=== PATIENT | female | born 1940 | race Caucasian/White ===

== ENCOUNTER 2020-05-30 11:30 | Inpatient (IN) | payer OTHER, MEDICAID ==
[~2020-05-30] VITALS: Ht 157.5 cm; Wt 123.8 kg
[~2020-05-30 11:30] MED LIST: ASPI81CH43; CLON0.1T; FURO1TAB31; LOSA100T22; LOVA40TA72; METF-370; POTA8TAB2; SITA100T7
[2020-05-30 12:09] LABS: Basophils # (auto) 0.1 10 ^3/uL (0-0.2); Basophils % (auto) 0.8 % (0.0-2.0); Eosinophils # (auto) 0.1 10 ^3/uL (0-0.8); Hematocrit 41.6 % (36.0-46.0); Hemoglobin 13.5 g/dL (12.2-16.2); Lymphocytes % (auto) 24.5 % (10.0-50.0); Mean Corpuscular Hemoglobin 29.7 pg (28.0-32.0); Mean Corpuscular Hgb Conc. 32.4 g/dL (32.0-36.0); Mean Corpuscular Volume 91.8 fL (80.0-100.0); Monocytes # (auto) 0.3 10 ^3/uL (0-1.3); Monocytes % (auto) 4.2 % (0.0-12.0); Neutrophils # (auto) 5.7 10 ^3/uL (1.6-8.6); Neutrophils % (auto) 69.5 % (37.0-80.0); Nucleated Red Blood Cells % 0.5 %; Red Blood Cells 4.53 10^6/uL (4.0-5.20); Red Cell Distribution Width 14.7 % (11.8-14.3); White Blood Cell 8.1 10^3/uL (4.4-10.8)
[2020-05-30 12:24] LABS: INR 1.02 (0.9-1.15); Partial Thromboplastin Time 28.5 sec (23.0-31.2)
[2020-05-30 12:37] LABS: Chloride 112 mmol/L (98-107); Potassium 3.9 mmol/L (3.5-5.1); Sodium 145 mmol/L (136-145)
[2020-05-30 12:49] LABS: Alanine Aminotransferase 13 U/L (13-56); Albumin 3.2 g/dL (3.4-5.0); Alkaline Phosphatase 102 U/L (45-117); Anion Gap 6 (5-15); Aspartate Aminotransferase 16 U/L (15-37); BUN/Creatinine Ratio 18.8; Bilirubin, Total 0.5 mg/dL (0.2-1.0); Blood Urea Nitrogen 15 mg/dL (7-18); Calcium 9.9 mg/dL (8.5-10.1); Carbon Dioxide 27 mmol/L (21-32); GFR African American 89 mL/min; GFR Non-African American 73 mL/min; Glucose 120 mg/dL (74-106); Total Protein 7.3 g/dL (6.4-8.2)
[2020-05-30] MEDS ORDERED: hydrALAZINE HCL 20 MG/ML VL IV ONE (13:30)
[2020-05-30] MEDS ORDERED: amLODIPine BESYLATE 5 MG TAB PO ONE (15:00)
[2020-05-30] MEDS ORDERED: LABETALOL HCL 5 MG/ML 4ML SYRINGE IV ONE (15:00)
[2020-05-30] MEDS ORDERED: NITROGLYCERIN 0.4 MG SL TAB SL PRN (17:00)
[2020-05-30] MEDS ORDERED: MORPHINE SULFATE INJECTION 2 MG/ML SYRG IV PRN ×2 (17:00→17:15)
[2020-05-30] MEDS ORDERED: LACTULOSE 20Gm/30ML SOLN PO PRN (17:15)
[2020-05-30] MEDS ORDERED: DEXTROSE (50%) 50ML SYRG IV PRN (17:15)
[2020-05-30] MEDS ORDERED: ALBUTEROL SULF 2.5 MG/0.5ML(0.5%) NEB SOLN NEB PRN (17:15)
[2020-05-30] MEDS ORDERED: levoFLOXacin 500MG 100 ML IV ONE (17:15)
[2020-05-30] MEDS ORDERED: ACETAMINOPHEN 500 MG TAB PO PRN (17:15)
[2020-05-30] MEDS ORDERED: ONDANSETRON HCL 4 MG/2 ML VIAL IV PRN (17:15)
[2020-05-30] MEDS ORDERED: ENOXAPARIN SOD 40 MG/0.4 ML SYRINGE SC ONE (17:15)
[2020-05-30] MEDS ORDERED: traMADol HCL 50 MG TAB PO PRN (17:15)
[2020-05-30] MEDS: IPRATROPIUM BROM 0.5 MG/2.5ML INH SOL NEB SCH ×2 (18:51→23:51)
[2020-05-30] MEDS: ALBUTEROL SULF 2.5 MG/0.5ML(0.5%) NEB SOLN NEB SCH ×2 (18:51→23:51)
[2020-05-30] MEDS: LABETALOL HCL 5 MG/ML ML 20ML VIAL IV PRN (19:14)
[2020-05-30 21:06] VITALS: BP 163/89
[2020-05-30 22:22] VITALS: BP 160/89
[2020-05-30 22:36] LABS: Urine Amorphous Crystal MOD /hpf (None Seen); Urine Bacteria MANY /hpf (None Seen); Urine Hyaline Cast FEW /lpf (0 - 2); Urine Mucus FEW (None Seen); Urine WBC 168 /hpf (0 - 5); Urine WBC Clumps PRESENT /hpf (None Seen)
[2020-05-30 22:46] LABS: Urine Specific Gravity 1.015 (1.001-1.035)
[2020-05-30 22:47] LABS: Urine Blood 1+ /uL (Negative)
[2020-05-30] MEDS: SODIUM CHLOR 0.9% PF (SALINE LOCK) 10ML VIAL/SYR IV SCH (23:09)
[2020-05-30] MEDS: CLINDAMYCIN 600MG IV 50 ML IV SCH (23:09)
[2020-05-30] MEDS: ENOXAPARIN SOD 120 MG/0.8 ML SYRINGE SC SCH (23:10)
[2020-05-30] MEDS: FAMOTIDINE 20 MG TAB PO SCH (23:10)
[2020-05-30] MEDS: ACCU-CHEK COMFORT CURVE STRIP VI SCH (23:10)
[2020-05-30] MEDS: CARVEDILOL 3.125 MG TAB PO SCH (23:10)
[2020-05-30] MEDS: InsuLIN REG 1unit/0.01ml Soln (100units/ml) SC SCH (23:10)
[2020-05-30 23:27] LABS: Creatine Kinase IFCC 28 U/L (26-192)
[2020-05-31 05:00] VITALS: BP 166/92
[2020-05-31] MEDS: SODIUM CHLOR 0.9% PF (SALINE LOCK) 10ML VIAL/SYR IV SCH ×3 (06:26→20:41)
[2020-05-31] MEDS: ACCU-CHEK COMFORT CURVE STRIP VI SCH ×4 (06:26→21:35)
[2020-05-31] MEDS: CLINDAMYCIN 600MG IV 50 ML IV SCH ×3 (06:26→21:34)
[2020-05-31] MEDS: InsuLIN REG 1unit/0.01ml Soln (100units/ml) SC SCH ×4 (06:27→21:59)
[2020-05-31] MEDS: LABETALOL HCL 5 MG/ML ML 20ML VIAL IV PRN (06:42)
[2020-05-31] MEDS: ALBUTEROL SULF 2.5 MG/0.5ML(0.5%) NEB SOLN NEB SCH ×3 (07:18→19:11)
[2020-05-31] MEDS: IPRATROPIUM BROM 0.5 MG/2.5ML INH SOL NEB SCH ×3 (07:18→19:11)
[2020-05-31] MEDS ORDERED: METO1TAB9 PO (07:31)
[2020-05-31] MEDS ORDERED: GABA300C10 PO (07:31)
[2020-05-31 08:32] VITALS: BP 151/79
[2020-05-31] MEDS ORDERED: ASPirin 81 mg TAB PO SCH ×2 (10:00)
[2020-05-31] MEDS ORDERED: ENOXAPARIN SOD 40 MG/0.4 ML SYRINGE SC SCH (10:00)
[2020-05-31] MEDS: FUROSEMIDE 40 MG/4 ML VIAL IV SCH (10:02)
[2020-05-31] MEDS: ENOXAPARIN SOD 120 MG/0.8 ML SYRINGE SC SCH ×2 (10:02→21:59)
[2020-05-31] MEDS: NITROGLYCERIN 0.2MG/HR TOPICAL PATCH TD SCH (10:03)
[2020-05-31] MEDS: ENALAPRIL MALEATE 10 MG TAB PO SCH (10:04)
[2020-05-31] MEDS: CARVEDILOL 3.125 MG TAB PO SCH (10:05)
[2020-05-31] MEDS: POTASSIUM CHL 20 Meq TABLET PO SCH (10:05)
[2020-05-31] MEDS: FAMOTIDINE 20 MG TAB PO SCH ×2 (10:06→20:37)
[2020-05-31] MEDS: levoFLOXacin 500MG 100 ML IV SCH (10:06)
[2020-05-31 13:00] VITALS: BP 155/65
[2020-05-31 16:20] VITALS: BP 157/93
[2020-05-31] MEDS: GABAPENTIN 300 MG CAP PO SCH (20:37)
[2020-05-31] MEDS: ATORVASTATIN 20 MG TAB PO SCH (20:38)
[2020-05-31] MEDS: LOSARTAN POTASSIUM 50 MG TAB PO SCH (20:40)
[2020-05-31 22:00] VITALS: BP 161/74
[2020-05-31] MEDS ORDERED: ATORVASTATIN 20 MG TAB PO ONE (22:00)
[2020-06-01] MEDS: IPRATROPIUM BROM 0.5 MG/2.5ML INH SOL NEB SCH ×4 (00:39→19:21)
[2020-06-01] MEDS: ALBUTEROL SULF 2.5 MG/0.5ML(0.5%) NEB SOLN NEB SCH ×4 (00:39→19:21)
[2020-06-01] MEDS: GABAPENTIN 300 MG CAP PO SCH ×3 (04:58→21:23)
[2020-06-01] MEDS: SODIUM CHLOR 0.9% PF (SALINE LOCK) 10ML VIAL/SYR IV SCH ×3 (04:58→21:23)
[2020-06-01] MEDS: CLINDAMYCIN 600MG IV 50 ML IV SCH ×3 (04:59→21:19)
[2020-06-01 05:13] VITALS: BP 147/83
[2020-06-01] MEDS: ACCU-CHEK COMFORT CURVE STRIP VI SCH ×4 (06:55→21:55)
[2020-06-01] MEDS: InsuLIN REG 1unit/0.01ml Soln (100units/ml) SC SCH ×4 (06:55→21:55)
[2020-06-01 07:30] VITALS: BP 149/115
[2020-06-01] MEDS: ENOXAPARIN SOD 120 MG/0.8 ML SYRINGE SC SCH ×2 (09:28→21:24)
[2020-06-01] MEDS: FUROSEMIDE 40 MG/4 ML VIAL IV SCH (09:28)
[2020-06-01] MEDS: levoFLOXacin 500MG 100 ML IV SCH (09:29)
[2020-06-01] MEDS: ENALAPRIL MALEATE 10 MG TAB PO SCH (09:29)
[2020-06-01] MEDS: FAMOTIDINE 20 MG TAB PO SCH ×2 (09:29→21:22)
[2020-06-01] MEDS: METOPROLOL SUCCINATE XL 50 MG TAB PO SCH (09:30)
[2020-06-01] MEDS: POTASSIUM CHL 20 Meq TABLET PO SCH (09:30)
[2020-06-01] MEDS: LOSARTAN POTASSIUM 50 MG TAB PO SCH ×2 (09:30→21:24)
[2020-06-01] MEDS: NITROGLYCERIN 0.2MG/HR TOPICAL PATCH TD SCH (10:00)
[2020-06-01 10:58] VITALS: BP 157/76
[2020-06-01 13:00] VITALS: BP 154/111
[2020-06-01 15:30] VITALS: BP 146/76
[2020-06-01] MEDS: ATORVASTATIN 20 MG TAB PO SCH (21:22)
[2020-06-01 22:00] VITALS: BP 151/62
[2020-06-02] VITALS (7 sets, daily range): BP systolic 137–152; BP diastolic 74–85
[2020-06-02] MEDS: IPRATROPIUM BROM 0.5 MG/2.5ML INH SOL NEB SCH ×4 (00:28→19:04)
[2020-06-02] MEDS: ALBUTEROL SULF 2.5 MG/0.5ML(0.5%) NEB SOLN NEB SCH ×4 (00:28→19:04)
[2020-06-02] MEDS: SODIUM CHLOR 0.9% PF (SALINE LOCK) 10ML VIAL/SYR IV SCH ×3 (05:45→22:24)
[2020-06-02] MEDS: GABAPENTIN 300 MG CAP PO SCH ×4 (05:45→22:30)
[2020-06-02] MEDS: CLINDAMYCIN 600MG IV 50 ML IV SCH ×4 (05:45→22:24)
[2020-06-02] MEDS: ACCU-CHEK COMFORT CURVE STRIP VI SCH ×4 (06:15→22:25)
[2020-06-02] MEDS: InsuLIN REG 1unit/0.01ml Soln (100units/ml) SC SCH ×4 (06:15→22:26)
[2020-06-02] MEDS: levoFLOXacin 500MG 100 ML IV SCH (10:31)
[2020-06-02] MEDS: FUROSEMIDE 40 MG/4 ML VIAL IV SCH (10:31)
[2020-06-02] MEDS: POTASSIUM CHL 20 Meq TABLET PO SCH (10:32)
[2020-06-02] MEDS: LOSARTAN POTASSIUM 50 MG TAB PO SCH ×3 (10:32→22:24)
[2020-06-02] MEDS: METOPROLOL SUCCINATE XL 50 MG TAB PO SCH (10:33)
[2020-06-02] MEDS: FAMOTIDINE 20 MG TAB PO SCH ×3 (10:33→22:30)
[2020-06-02] MEDS: ENALAPRIL MALEATE 10 MG TAB PO SCH (10:34)
[2020-06-02] MEDS: ENOXAPARIN SOD 120 MG/0.8 ML SYRINGE SC SCH ×3 (10:34→22:30)
[2020-06-02] MEDS: NITROGLYCERIN 0.2MG/HR TOPICAL PATCH TD SCH (10:35)
[2020-06-02] MEDS: ATORVASTATIN 20 MG TAB PO SCH (22:25)
[2020-06-03] MEDS: ALBUTEROL SULF 2.5 MG/0.5ML(0.5%) NEB SOLN NEB SCH ×4 (00:16→19:26)
[2020-06-03] MEDS: IPRATROPIUM BROM 0.5 MG/2.5ML INH SOL NEB SCH ×4 (00:16→19:26)
[2020-06-03 05:00] VITALS: BP 145/82
[2020-06-03] MEDS: GABAPENTIN 300 MG CAP PO SCH ×3 (06:10→22:32)
[2020-06-03] MEDS: InsuLIN REG 1unit/0.01ml Soln (100units/ml) SC SCH ×4 (06:11→22:50)
[2020-06-03] MEDS: SODIUM CHLOR 0.9% PF (SALINE LOCK) 10ML VIAL/SYR IV SCH ×3 (06:11→22:28)
[2020-06-03] MEDS: ACCU-CHEK COMFORT CURVE STRIP VI SCH ×4 (06:11→22:30)
[2020-06-03] MEDS: CLINDAMYCIN 600MG IV 50 ML IV SCH ×3 (06:11→22:28)
[2020-06-03 09:00] VITALS: BP 131/58
[2020-06-03] MEDS ORDERED: LORazepam 2MG/ML-1ML VIAL IV PRN (09:15)
[2020-06-03] MEDS: FUROSEMIDE 40 MG/4 ML VIAL IV SCH (10:02)
[2020-06-03] MEDS: levoFLOXacin 500MG 100 ML IV SCH (10:02)
[2020-06-03] MEDS: LOSARTAN POTASSIUM 50 MG TAB PO SCH ×2 (10:03→22:33)
[2020-06-03] MEDS: FAMOTIDINE 20 MG TAB PO SCH ×2 (10:03→22:30)
[2020-06-03] MEDS: POTASSIUM CHL 20 Meq TABLET PO SCH (10:03)
[2020-06-03] MEDS: METOPROLOL SUCCINATE XL 50 MG TAB PO SCH (10:04)
[2020-06-03] MEDS: ENALAPRIL MALEATE 10 MG TAB PO SCH (10:04)
[2020-06-03] MEDS: ENOXAPARIN SOD 120 MG/0.8 ML SYRINGE SC SCH ×2 (10:04→22:30)
[2020-06-03] MEDS: NITROGLYCERIN 0.2MG/HR TOPICAL PATCH TD SCH (10:05)
[2020-06-03 12:06] LABS: Cholesterol 143 mg/dL (< 200); Triglycerides 133 mg/dL (< 150)
[2020-06-03 12:09] LABS: HDL Cholesterol 47 mg/dL (40-59); LDL Cholesterol 76 mg/dL (< 100)
[2020-06-03 13:00] VITALS: BP 127/81
[2020-06-03 17:00] VITALS: BP 120/76
[2020-06-03] MEDS: ATORVASTATIN 20 MG TAB PO SCH (22:30)
[2020-06-03 23:05] VITALS: BP 131/53
[2020-06-04] MEDS: ALBUTEROL SULF 2.5 MG/0.5ML(0.5%) NEB SOLN NEB SCH ×3 (00:48→11:21)
[2020-06-04] MEDS: IPRATROPIUM BROM 0.5 MG/2.5ML INH SOL NEB SCH ×3 (00:48→11:21)
[2020-06-04 05:00] VITALS: BP 112/53
[2020-06-04] MEDS: CLINDAMYCIN 600MG IV 50 ML IV SCH (06:28)
[2020-06-04] MEDS: SODIUM CHLOR 0.9% PF (SALINE LOCK) 10ML VIAL/SYR IV SCH (06:29)
[2020-06-04] MEDS: ACCU-CHEK COMFORT CURVE STRIP VI SCH (06:29)
[2020-06-04] MEDS: GABAPENTIN 300 MG CAP PO SCH (06:29)
[2020-06-04] MEDS: InsuLIN REG 1unit/0.01ml Soln (100units/ml) SC SCH (06:46)
[2020-06-04 09:00] VITALS: BP 144/68
[2020-06-04] MEDS: NITROGLYCERIN 0.2MG/HR TOPICAL PATCH TD SCH (10:34)
[2020-06-04] MEDS: levoFLOXacin 500MG 100 ML IV SCH (10:34)
[2020-06-04] MEDS: METOPROLOL SUCCINATE XL 50 MG TAB PO SCH (10:35)
[2020-06-04] MEDS: FAMOTIDINE 20 MG TAB PO SCH (10:35)
[2020-06-04] MEDS: POTASSIUM CHL 20 Meq TABLET PO SCH (10:35)
[2020-06-04] MEDS: ENOXAPARIN SOD 120 MG/0.8 ML SYRINGE SC SCH (10:36)
[2020-06-04] MEDS: LOSARTAN POTASSIUM 50 MG TAB PO SCH (10:37)
[2020-06-04 10:50] VITALS: BP 144/68
[2020-06-04 12:59] VITALS: BP 134/77
== END 2020-06-04 12:25 | disposition home or self-care (01) | DRG 304 ==
LOC: EDBD 11:30 → ER 11:30 → TELE 16:49 → TELE-WESTW 22:19
PROVIDERS: ADMIT Internal Medicine; ATTEND Internal Medicine Geriatric Medicine
DX: I16.1 Hypertensive emergency (principal); G93.41 Metabolic encephalopathy; N39.0 Urinary tract infection, site not specified; G45.9 Transient cerebral ischemic attack, unspecified; E44.1 Mild protein-calorie malnutrition; L03.116 Cellulitis of left lower limb; Z68.43 Body mass index [BMI] 50.0-59.9, adult; J90 Pleural effusion, not elsewhere classified; I48.91 Unspecified atrial fibrillation; I50.9 Heart failure, unspecified; E66.01 Morbid (severe) obesity due to excess calories; E11.9 Type 2 diabetes mellitus without complications; E78.5 Hyperlipidemia, unspecified; F17.200 Nicotine dependence, unspecified, uncomplicated; Z96.653 Presence of artificial knee joint, bilateral; R47.9 Unspecified speech disturbances; Z20.822 Contact with and (suspected) exposure to COVID-19; I11.0 Hypertensive heart disease with heart failure; K46.9 Unspecified abdominal hernia without obstruction or gangrene; Z79.899 Other long term (current) drug therapy; Z82.3 Family history of stroke; Z82.49 Family history of ischemic heart disease and other diseases of the circulatory system; Z83.3 Family history of diabetes mellitus; Z85.3 Personal history of malignant neoplasm of breast; Z85.820 Personal history of malignant melanoma of skin; Z87.19 Personal history of other diseases of the digestive system; Z93.3 Colostomy status; Z95.0 Presence of cardiac pacemaker
CPT/HCPCS: 36415; 70450; 71045; 80053; 80061; 81001; 82550; 82962; 83036; 83880; 84484; 85025; 85379; 85610; 85652; 85730; 87070; 87205; 87426; 93005; 93306; 93886; 94640; 95819; 96365; 96375; 97110; 97116; 97530; 99291; G0378; J1815; J1956; J3490